=== PATIENT | male | born 1995 | race Caucasian/White ===

== ENCOUNTER 2017-03-23 22:49 | Emergency (ER) | payer OTHER ==
[2017-03-23] MEDS ORDERED: DEXAMETHASONE 10 MG/ML VIAL IVP ONE (23:16)
[2017-03-23] MEDS ORDERED: KETOROLAC 30 MG/1 ML SDV IVP ONE (23:16)
[2017-03-23] MEDS ORDERED: NS 1,000 ML IV ONE (23:16)
[2017-03-23] MEDS ORDERED: HYDROmorphONE/DILAUDID 1 MG/ML SYR IVP ONE (23:16)
--- NOTE | 2017-03-23 23:25 | EDPHY ---
H & P Time Seen by Provider: 03/23/17 23:10 HPI/ROS: HPI Headache, earache. 21-year-old male by private vehicle with his girlfriend. This patient is new to altitude. He has been in [place] for about a week and a half. [place] He [place] he [place] today. He reports that he came home about 8 hours prior to arrival. He noticed a right ear ache with radiation up into his right muslim area as well as down into his right TMJ area. He reports he woke from a nap and the your ache and headache was worse. He describes having a headache similar to this when he was younger but describes that headache as being bilaterally. ROS: Constitutional: No fever, no chills. No weakness. Eyes: No discharge. No changes in vision. ENT: No sore throat. No nasal congestion or rhinorrhea. As above. Respiratory: No cough. No shortness of breath. Cardiac: No chest pain, no palpitations. Gastrointestinal: No abdominal pain, no vomiting, no diarrhea. Genitourinary: No hematuria. No dysuria or increased frequency with urination. Musculoskeletal: No back pain. No neck pain. No myalgias or arthralgias. Skin: No rashes. Neurological: As above. No focal weakness or altered sensation. Past medical history: Denies any significant past medical history. Social history: Nonsmoker. No alcohol. Here with his girlfriend. Physical Exam: General Appearance: Alert, no distress. This patient is responding to questions appropriately and in full sentences. This patient appears well- hydrated and well-nourished. Eyes: Pupils equal and round no pallor or injection. No lid edema, erythema or injection. No photophobia. No nystagmus. Head: Normocephalic atraumatic no tenderness on palpation of the right TMJ, no soft tissue swelling, erythema, warmth noted. No tenderness on palpation over the right temporal area. No soft tissue changes to this area as well. ENT, Mouth: Mucous membranes are moist. The pharyngeal tissues are unremarkable. No edema or swelling. No asymmetry suggestive of abscess. No erythema or exudates. The right tympanic membrane is erythematous and edematous with loss of landmarks. The right external auditory canal is patent but edematous and inflamed. Left tympanic membrane and external auditory canal are normal. Neurological: Motor sensory function is grossly intact. Cranial nerves are normal. Gait is normal. Skin: Warm and dry, no rashes. Musculoskeletal: Neck is supple and nontender. No pain on flexion of the neck. Extremities are symmetrical. All joints range without pain or impingement. Psychiatric: No agitation. No depression. Database: EKG: Imaging: Procedures: Emergency department course: Patient's presentation is consistent with a right sided otitis media and otitis externa, however I also suspect in altitude/acute mountain sickness component to his headache. An IV was placed. He was started on IV normal saline with 1 L to be given over 1 hour. He will be given IV Toradol 30 mg, 10 mg of IV Decadron and 0.5 mg of IV hydromorphone. He has no history of renal failure or other contraindications to NSAIDs. He will also be started on amoxicillin 500 mg for treatment of otitis media and Ciprodex drops for treatment of otitis externa. 12:15 a.m., patient re-evaluated. He is much more comfortable at this time. He states he feels much better and feels comfortable going home. I feel he is safe for discharge. Repeat neurologic Assessment is nonfocal. He is up and ambulatory with a normal gait. I will prescribe him Ciprodex otic as well as amoxicillin for treatment of his right ear infection. I have also recommended ibuprofen to be taken starting tomorrow if he requires further pain management. I will send him home with a take-home pack of Vicodin as well. Follow-up and return to emergency department precautions reviewed with him and his girlfriend. All of their questions were answered. He was discharged in good condition. Differential Diagnosis: The differential diagnosis on this patient includes but is not limited to otitis media, otitis externa, acute mountain sickness, migraine headache. Subarachnoid hemorrhage, temporal arteritis, meningitis, encephalitis, carotid artery dissection, vertebral artery dissection, cavernous sinus thrombosis, sagittal sinus thrombosis unlikely. This represents a partial list of diagnoses considered. These considerations are based on history, physical exam , past history, reassessment and diagnostic testing. Smoking Status: Light smoker Constitutional: Initial Vital Signs Temperature (C) 36.5 C 03/23/17 23:00 Heart Rate 69 03/23/17 23:00 Respiratory Rate 18 03/23/17 23:00 Blood Pressure 140/83 H 03/23/17 23:00 O2 Sat (%) 97 03/23/17 23:00 Allergies/Adverse Reactions: No Known Allergies Allergy (Unverified 03/23/17 23:03) Home Medications: Medication Instructions Recorded Amoxicillin Trihydrate 500 mg PO Q6 #28 cap 03/23/17 [Amoxicillin 500mg cap] Departure - Departure Disposition: Home, Routine, Self-Care Clinical Impression: Otitis media, Otitis externa, Acute mountain sickness Condition: Good Instructions: Otitis Media (ED), Otitis Externa (ED), Mountain Sickness (ED) Additional Instructions: Read and follow provided instructions. Follow-up with your primary care physician in 1-2 days for re-evaluation. I have provided you to referrals for local primary care physicians. Take medication as prescribed through entire course of treatment. Ciprodex otic drops: 4 drops to right ear, twice daily for 5 days. Ibuprofen dosin mg every 6 hours with meals for the next 3 days only. Take only as needed. Do not take until tomorrow morning. [place]/Percocet dosin-2 every 4-[address] not drive on this medication. Take this medication only as needed. Return to the emergency department for worsening pain, fever, vomiting or other serious concerns. Referrals: [facility],. [Clinic] - As per Instructions Nigel Talbot MD [[facility] [place]] - As per Instructions Prescriptions: Amoxicillin Trihydrate [Amoxicillin 500mg cap] 500 mg PO Q6 #28 cap
[2017-03-23] MEDS ORDERED: HYDROCOD/APAP 5/325 PREPACK#6 BTL TAKEHOME ONE (23:27)
[2017-03-24 00:34] VITALS: BP 126/71; PULSE 66; RESP 16; TEMP 97.9; O2SAT 96
[2017-03-24] MEDS ORDERED: CIPROFLOXACIN HCL/DEXAMETH 7.5 ML OTIC DROPS RTEAR ONE (23:19)
== END 2017-03-24 00:34 | disposition home or self-care (01) ==
DX: H60.91 Unspecified otitis externa, right ear (principal); F17.200 Nicotine dependence, unspecified, uncomplicated; H66.91 Otitis media, unspecified, right ear; D75.1 Secondary polycythemia
CPT/HCPCS: 96374; J1170; J1885